=== PATIENT | male | born 1955 | race Two or more races ===

== ENCOUNTER 2016-07-01 07:23 | Day surgery (SDC) | payer OTHER, BC ==
[~2016-07-01 07:23] MED LIST: LIDOCAINE 2% (PRES FREE) 5 ML VIAL ONE; PROPOFOL 40 ML IV ONE
[2016-07-01] MEDS ORDERED: LACTATED RINGERS 0 ML ONE (07:29)
[2016-07-01] MEDS ORDERED: IV START KIT ONE (07:29)
[2016-07-01] MEDS ORDERED: SODIUM CHLORIDE 0.9% 1,000 ML ONE (07:44)
[2016-07-01] MEDS ORDERED: LACTATED RINGERS 1,000 ML IV SCH (09:15)
[2016-07-01] MEDS ORDERED: PROPOFOL 20 ML IV ONE (12:08)
--- NOTE | 2016-07-03 13:46 | SURGPATH ---
[facility] [address] [place] [id number] Patient Name: ALEJANDRA PRINGLE MR#: [id number] : 1955 Gender: M Specimen #: [id number] Collected: 07/01/2016 Received: 07/02/2016 Reported: 07/03/2016 Submitting Phys: MELA LAM Copy To Phys: WINIFRED BOCANEGRA [facility] Clinical History / Pre-Operative Diagnosis: SCREENING COLONOSCOPY Specimen Source / Surgical Procedure Performed: #1-TRANSVERSE COLON POLYP; #2-SIGMOID COLON POLYP X2; #3-RECTAL POLYP AT 15 CM Interpretation: 1. COLON, TRANSVERSE, BIOPSY: - TWO FRAGMENTS OF TUBULAR ADENOMAS. - NO EVIDENCE OF MALIGNANCY. 2. COLON, SIGMOID, BIOPSY: - COLONIC MUCOSA SHOWING NO DIAGNOSTIC ABNORMALITIES. - NO EVIDENCE OF SIGNIFICANT INFLAMMATION OR MALIGNANCY. 3. RECTUM, 15 CM, BIOPSY: - HYPERPLASTIC POLYP. - NO EVIDENCE OF ADENOMATOUS CHANGE OR MALIGNANCY. Electronically Signed Out Sherif Rivera M.D., Ph.D. Gross Description: #1 The specimen is received in a formalin filled container labeled with the patient's name and "transverse colon polyp". Three ferreira biopsies are 0.4, 0.5 and 0.5 cm. Totally embedded in cassette #1. #2 The specimen is received in a formalin filled container labeled with the patient's name and "sigmoid polyp x2". Two pale ferreira biopsies are each 0.2 cm. Totally embedded in cassette #2. #3 The specimen is received in a formalin filled container labeled with the patient's name and "rectal polyp at 15 cm". A polypoid ferreira biopsy is 0.3 cm. Totally embedded in cassette #3. Sheng Villeda PSharif. Microscopic Description: 1. Examination of multiple levels from the transverse colon biopsy shows three fragments of colonic mucosa. Two of the pieces show adenomatous changes within glands and tubules. There is no evidence of malignancy. 2. Examination of multiple levels from the sigmoid colon biopsy shows two fragments of histologically unremarkable colonic mucosa. The architecture is intact without evidence of distortion. There is no evidence of significant inflammation or malignancy. 3. Examination of multiple levels from the rectum biopsy at 15 cm shows a single fragment of colonic mucosa with dilated and hyperplastic glands. There is no evidence of adenomatous change or malignancy. 1: 38947 2: 48333 3: 42628 D12.3 K62.1
== END 2016-07-01 09:45 | disposition home or self-care (01) ==
LOC: SDC 07:23
PROVIDERS: ATTEND Surgery
PROC: 0DBL8ZX Excision of Transverse Colon, Via Natural or Artificial Opening Endoscopic, Diagnostic (ICD-10-PCS; principal; 2016-07-01)
PROC: 0DBN8ZX Excision of Sigmoid Colon, Via Natural or Artificial Opening Endoscopic, Diagnostic (ICD-10-PCS; 2016-07-01)
PROC: 0DBP8ZX Excision of Rectum, Via Natural or Artificial Opening Endoscopic, Diagnostic (ICD-10-PCS; 2016-07-01)
DX: Z12.11 Encounter for screening for malignant neoplasm of colon (principal); D12.3 Benign neoplasm of transverse colon; D12.5 Benign neoplasm of sigmoid colon; D12.8 Benign neoplasm of rectum; K57.30 Diverticulosis of large intestine without perforation or abscess without bleeding; E11.40 Type 2 diabetes mellitus with diabetic neuropathy, unspecified; Z79.84 Long term (current) use of oral hypoglycemic drugs; I10 Essential (primary) hypertension; E78.5 Hyperlipidemia, unspecified; Z85.46 Personal history of malignant neoplasm of prostate; R32 Unspecified urinary incontinence
CPT/HCPCS: 45385; 45380; J7030